=== PATIENT | female | born 1980 | race Caucasian/White ===

== ENCOUNTER 2020-06-15 15:24 | Emergency (ER) | payer OTHER, MEDICAID ==
[2020-06-15 16:38] LABS: ANION GAP 14.2 mEq/L (7-13); CHLORIDE,CL 101 mmol/L (98-107); SODIUM,NA 141 mmol/L (136-145)
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
== END 2020-06-15 18:10 | disposition home or self-care (01) ==
LOC: DL.ED 15:24
DX: T74.21XA Adult sexual abuse, confirmed, initial encounter (principal); F17.210 Nicotine dependence, cigarettes, uncomplicated
CPT/HCPCS: 36415; 80053; 80305-QW; 80307; 81001; 81025; 85025; 99282; 99285

== ENCOUNTER 2020-09-10 15:52 | Emergency (ER) | payer MEDICAID ==
[2020-09-10] MEDS ORDERED: LORazepam 1 MG Tab PO ONE ×2 (15:53→18:44)
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
[2020-09-10 17:17] LABS: ANION GAP 16.6 mEq/L (7-13); CHLORIDE,CL 100 mmol/L (98-107); SODIUM,NA 140 mmol/L (136-145)
[2020-09-10] MEDS ORDERED: Nitrofurantoin Monohydrate/Macrocrystalline 100 MG Cap PO ONE (18:57)
[2020-09-10] MEDS ORDERED: LORazepam 1 MG Tab ONE (19:09)
== END 2020-09-10 19:14 | disposition home or self-care (01) ==
LOC: DL.ED 15:52
DX: F10.230 Alcohol dependence with withdrawal, uncomplicated (principal); F17.210 Nicotine dependence, cigarettes, uncomplicated; Z79.899 Other long term (current) drug therapy; Y90.4 Blood alcohol level of 80-99 mg/100 ml
CPT/HCPCS: 36415; 80053; 80305-QW; 80307; 81001; 81025; 85025; 87086; 87088; 87186; 99283; 99284; A9270-GY

== ENCOUNTER 2021-01-10 11:03 | Emergency (ER) | payer MEDICAID ==
[2021-01-10] MEDS ORDERED: LORazepam 0.5 MG Tab PO ONE (11:04)
[2021-01-10 11:52] LABS: ANION GAP 29.4 mEq/L (7-13); CHLORIDE,CL 97 mmol/L (98-107); SODIUM,NA 139 mmol/L (136-145)
[2021-01-10] MEDS ORDERED: LORazepam 2 MG/ML SDV IVPUSH ONE ×3 (11:57→15:59)
[2021-01-10] MEDS ORDERED: Sodium Chloride 0.9% 1,000 ML IV ONE (11:57)
[2021-01-10] MEDS ORDERED: Magnesium Sulfate/Water 2 GM/50 ML BAG IV ONE (11:58)
[2021-01-10] MEDS ORDERED: MVI, Adult with Vitamin K 10 ML, Folic Acid 1 MG, Thiamine 100 MG in Lactated Ringers 1... IV ONE ×4 (13:59)
[2021-01-10] MEDS ORDERED: Magnesium Sulfate/D5W 2 GM/200 ML BAG ONE (14:03)
[2021-01-10] MEDS ORDERED: LORazepam 0.5 MG Tab ONE (16:00)
--- NOTE | 2021-01-10 17:00 | EDM.PDOCBH ---
Scribed by Ida Pina 01/10/21 1534 for Marianne Cast NP ED HPI GENERAL MEDICAL PROBLEM - General Chief Complaint: Drug or Alcohol Abuse Stated Complaint: DETOX Time Seen by Provider: 01/10/21 11:18 Source of Information: Reports: Patient, RN, RN Notes Reviewed History Limitations: Reports: No Limitations - History of Present Illness INITIAL COMMENTS - FREE TEXT/NARRATIVE: Patient is a 40-year-old female who presents to ER with complaint of vomiting when eating. Seen last week for lab work--elevated liver enzymes. States she drinks heavily. Last drink this A.M. at 9 "a few drinks" last night got drunk. States she has been drinking especially heavy over the past 2 weeks. Patient states she has lost a lot of weight over the past few months. Patient states she is here because she can't eat and she wants to stop drinking. She has increased anxiety but no hallucinations. No blood in vomit or stool. She has had no headaches bit mild tremors and nausea in the last 2 weeks. Onset: Gradual Duration: Getting Worse Severity: Moderate Improves with: Reports: None Worsens with: Reports: None Associated Symptoms: Reports: No Other Symptoms - Related Data Allergies Allergy/AdvReac Type Severity Reaction Status Date / Time No Known Allergies Allergy Verified 01/10/21 11:13 Home Meds: Home Meds Naltrexone Microspheres [Vivitrol] 380 mg IM ASDIRECTED 09/10/20 [History] Propranolol [Inderal] 20 mg PO BID 09/10/20 [History] Vilazodone [Viibryd] 20 mg PO DAILY 09/10/20 [History] Past Medical History HEENT History: Reports: None Cardiovascular History: Reports: None Respiratory History: Reports: None Gastrointestinal History: Reports: None Genitourinary History: Reports: None SHIP FITTER History: Reports: None Musculoskeletal History: Reports: None Neurological History: Reports: None Psychiatric History: Reports: Addiction Endocrine/Metabolic History: Reports: None Hematologic History: Reports: None Immunologic History: Reports: None Oncologic (Cancer) History: Reports: None Dermatologic History: Reports: None - Infectious Disease History Infectious Disease History: Reports: None - Past Surgical History Head Surgeries/Procedures: Reports: None Social & Family History - Family History Family Medical History: No Pertinent Family History - Caffeine Use Caffeine Use: Reports: Soda ED ROS GENERAL - Review of Systems Review Of Systems: Comprehensive ROS is negative, except as noted in HPI. ED EXAM, BEHAVIORAL HEALTH - Physical Exam Exam: See Below Exam Limited By: No Limitations General Appearance: Anxious Eye Exam: Bilateral Eye: EOMI, Normal Inspection, PERRL Ears: Normal External Exam, Normal Canal, Hearing Grossly Normal, Normal TMs Nose: Normal Inspection, Normal Mucosa, No Blood Throat/Mouth: Normal Inspection, Normal Lips, Normal Teeth, Normal Gums, Normal Oropharynx, Normal Voice, No Airway Compromise Head: Atraumatic, Normocephalic Neck: Normal Inspection, Supple, Non-Tender, Full Range of Motion Respiratory/Chest: No Respiratory Distress, Lungs Clear, Normal Breath Sounds, No Accessory Muscle Use, Chest Non-Tender Cardiovascular: Normal Peripheral Pulses, Regular Rate, Rhythm, No Edema, No Gallop, No JVD, No Murmur, No Rub GI/Abdominal: Normal Bowel Sounds, Soft, Non-Tender, No Organomegaly, No Distention, No Abnormal Bruit, No Mass (Female) Exam: Deferred Rectal (Female) Exam: Deferred Back Exam: Normal Inspection, Full Range of Motion, NT Extremities: Normal Inspection, Normal Range of Motion, Non-Tender, Normal Capillary Refill, No Pedal Edema Neurological: Alert, Normal Mood/Affect, CN II-XII Intact, Normal Cognition, Normal Gait, Normal Reflexes, No Motor/Sensory Deficits, Oriented x 3 Psychiatric: Other (anxious) Skin Exam: Warm, Dry, Intact, Normal color, No rash COURSE, BEHAVIORAL HEALTH COMP - Course Vital Signs: Last Vital Signs Temp 98.3 F 01/10/21 11:14 Pulse 127 H 01/10/21 11:14 Resp 20 01/10/21 11:14 BP 135/90 01/10/21 11:14 Pulse Ox 100 01/10/21 11:14 Orders, Labs, Meds: Laboratory Tests 01/10/21 01/10/21 01/10/21 Range/Units 11:23 11:23 11:23 WBC (5.0-10.0) 10^3/uL RBC (4.2-5.4) 10^6/uL Hgb (12.0-16.0) g/dL Hct (37.0-47.0) % MCV (80-100) fL MCH (27.0-34.0) pg MCHC (33.0-35.0) g/dL Plt Count (150-450) 10^3/uL Neut % (Auto) (42.2-75.2) % Lymph % (Auto) (20.5-50.1) % [place] % (Auto) (2-8) % Eos % (Auto) (1.0-3.0) % Baso % (Auto) (0.0-1.0) % Sodium (136-145) mmol/L Potassium (3.5-5.1) mmol/L Chloride (98-107) mmol/L Carbon Dioxide (21-32) mmol/L Anion Gap (7-13) mEq/L BUN (7-18) mg/dL Creatinine (0.55-1.02) mg/dL Est Cr Clr Drug Dosing mL/min Estimated GFR (MDRD) BUN/Creatinine Ratio (No establ ref range) Glucose (74-99) mg/dL Calcium (8.5-10.1) mg/dL Magnesium (1.8-2.4) mg/dL Total Bilirubin (0.2-1.0) mg/dL AST (15-37) U/L ALT (14-59) U/L Alkaline Phosphatase (46-116) U/L Total Protein (6.4-8.2) g/dL Albumin (3.4-5.0) g/dL Globulin Albumin/Globulin Ratio Urine Color Yellow (YELLOW) Urine Appearance Cloudy (CLEAR) Urine pH 5.5 (5.0-9.0) Ur Specific [place] >= 1.030 (1.005-1.030) Urine Protein 30 H (NEGATIVE) Urine Glucose (UA) Negative (NEGATIVE) Urine Ketones >=160 H (NEGATIVE) Urine Occult Blood Small H (NEGATIVE) Urine Nitrite Negative (NEGATIVE) Urine Bilirubin Small H (NEGATIVE) Urine Urobilinogen 1.0 (0.2-1.0) mg/dL Ur Leukocyte Esterase Trace H (NEGATIVE) Urine RBC 0-5 /HPF Urine WBC 10-20 H (0-5/HPF) /HPF Ur Epithelial Cells Many H (NOT SEEN) /HPF Amorphous Sediment Occasional (NOT SEEN) /HPF Urine Bacteria Few (0-FEW/HPF) /HPF Urine Mucus Rare (NOT SEEN) /LPF Urine Yeast Rare H (NOT SEEN) /HPF Urinalysis Comment Urine HCG, Qual Negative Urine Opiates Screen Negative (NEGATIVE) Ur Oxycodone Screen Negative (NEGATIVE) Urine Methadone Screen Negative (NEGATIVE) Ur Barbiturates Screen Negative (NEGATIVE) U Tricyclic Antidepress Negative (NEGATIVE) Ur Phencyclidine Scrn Negative (NEGATIVE) Ur Amphetamine Screen Negative (NEGATIVE) U Methamphetamines Scrn Negative (NEGATIVE) Urine MDMA Screen Negative (NEGATIVE) U Benzodiazepines Scrn Negative (NEGATIVE) Urine Cocaine Screen Negative (NEGATIVE) U Marijuana (THC) Screen Negative (NEGATIVE) Ethyl Alcohol (0) mg/dL 01/10/21 01/10/21 Range/Units 11:29 11:29 WBC 5.0 (5.0-10.0) 10^3/uL RBC 3.77 L (4.2-5.4) 10^6/uL Hgb 13.6 (12.0-16.0) g/dL Hct 39.4 (37.0-47.0) % MCV 104.5 H (80-100) fL MCH 36.1 H (27.0-34.0) pg MCHC 34.5 (33.0-35.0) g/dL Plt Count 183 (150-450) 10^3/uL Neut % (Auto) 70.9 (42.2-75.2) % Lymph % (Auto) 19.6 L (20.5-50.1) % [place] % (Auto) 8.9 H (2-8) % Eos % (Auto) 0.2 L (1.0-3.0) % Baso % (Auto) 0.4 (0.0-1.0) % Sodium 139 (136-145) mmol/L Potassium 3.4 L (3.5-5.1) mmol/L Chloride 97 L (98-107) mmol/L Carbon Dioxide 16 L D (21-32) mmol/L Anion Gap 29.4 H (7-13) mEq/L BUN 7 (7-18) mg/dL Creatinine 0.88 (0.55-1.02) mg/dL Est Cr Clr Drug Dosing 85.96 mL/min Estimated GFR (MDRD) > 60 BUN/Creatinine Ratio 8.0 (No establ ref range) Glucose 72 L (74-99) mg/dL Calcium 8.0 L (8.5-10.1) mg/dL Magnesium 1.4 L (1.8-2.4) mg/dL Total Bilirubin 1.3 H (0.2-1.0) mg/dL AST 483 H (15-37) U/L ALT 67 H (14-59) U/L Alkaline Phosphatase 217 H (46-116) U/L Total Protein 7.3 (6.4-8.2) g/dL Albumin 3.0 L (3.4-5.0) g/dL Globulin 4.3 Albumin/Globulin Ratio 0.70 Urine Color (YELLOW) Urine Appearance (CLEAR) Urine pH (5.0-9.0) Ur Specific [place] (1.005-1.030) Urine Protein (NEGATIVE) Urine Glucose (UA) (NEGATIVE) Urine Ketones (NEGATIVE) Urine Occult Blood (NEGATIVE) Urine Nitrite (NEGATIVE) Urine Bilirubin (NEGATIVE) Urine Urobilinogen (0.2-1.0) mg/dL Ur Leukocyte Esterase (NEGATIVE) Urine RBC /HPF Urine WBC (0-5/HPF) /HPF Ur Epithelial Cells (NOT SEEN) /HPF Amorphous Sediment (NOT SEEN) /HPF Urine Bacteria (0-FEW/HPF) /HPF Urine Mucus (NOT SEEN) /LPF Urine Yeast (NOT SEEN) /HPF Urinalysis Comment Urine HCG, Qual Urine Opiates Screen (NEGATIVE) Ur Oxycodone Screen (NEGATIVE) Urine Methadone Screen (NEGATIVE) Ur Barbiturates Screen (NEGATIVE) U Tricyclic Antidepress (NEGATIVE) Ur Phencyclidine Scrn (NEGATIVE) Ur Amphetamine Screen (NEGATIVE) U Methamphetamines Scrn (NEGATIVE) Urine MDMA Screen (NEGATIVE) U Benzodiazepines Scrn (NEGATIVE) Urine Cocaine Screen (NEGATIVE) U Marijuana (THC) Screen (NEGATIVE) Ethyl Alcohol 97 (0) mg/dL Medications Discontinued Medications Generic Name Dose Route Start Last Admin Trade Name Freq PRN Reason Stop Dose Admin Sodium Chloride 1,000 mls @ 999 mls/hr 01/10/21 11:57 01/10/21 12:18 Normal Saline IV 01/10/21 12:57 999 mls/hr .BOLUS ONE Administration Magnesium Sulfate 2 gm in 50 mls @ 25 mls/hr 01/10/21 11:58 01/10/21 14:09 Magnesium Sulfate In Water 2 Gm/50 Ml IV 01/10/21 13:57 25 mls/hr ONETIME ONE Administration Multivitamins/Minerals 10 ml/ 1,011.2 mls @ 999 mls/hr 01/10/21 13:59 01/10/21 14:09 Folic Acid 1 mg/ Thiamine HCl IV 01/10/21 14:59 999 mls/hr 100 mg/ Lactated Ringer's ONETIME ONE Administration Magnesium Sulfate/Dextrose Confirm 01/10/21 14:03 01/10/21 14:09 Magnesium Sulfate In D5w 1 Gm/100 Ml Administered 01/10/21 14:04 Not Given Dose 2 gm in 200 mls @ as directed .ROUTE .STK-MED ONE Lorazepam 0.5 mg 01/10/21 11:57 01/10/21 12:18 Lorazepam 2 Mg/Ml Sdv IVPUSH 01/10/21 11:58 0.5 mg ONETIME ONE Administration Lorazepam 1 mg 01/10/21 14:08 01/10/21 14:13 Lorazepam 2 Mg/Ml Sdv IVPUSH 01/10/21 14:09 1 mg ONETIME ONE Administration Lorazepam 1 mg 01/10/21 15:59 01/10/21 16:04 Lorazepam 2 Mg/Ml Sdv IVPUSH 01/10/21 16:00 1 mg ONETIME ONE Administration Lorazepam Confirm 01/10/21 16:00 01/10/21 16:03 Lorazepam 0.5 Mg Tab Administered 01/10/21 16:01 Not Given Dose 3 mg .ROUTE .STK-MED ONE Departure - Departure Time of Disposition: 16:04 Disposition: Home, Self-Care 01 Condition: Fair Clinical Impression: Alcohol withdrawal syndrome Qualifiers: Complication of substance-induced condition: uncomplicated Qualified Code(s): F10.230 - Alcohol dependence with withdrawal, uncomplicated - Discharge Information *PRESCRIPTION DRUG MONITORING PROGRAM REVIEWED*: No *COPY OF PRESCRIPTION DRUG MONITORING REPORT IN PATIENT STEPHANIA: No Instructions: Alcohol Use Disorder, Alcohol Withdrawal Syndrome Forms: ED Department Discharge Additional Instructions: RX: Lorazepam as directed for anxiety Follow up at the [facility] tomorrow am Return to ER with any further problems Sepsis Event Note (ED) - Focused Exam Vital Signs: Vital Signs Temp Pulse Resp BP Pulse Ox 01/10/21 11:14 98.3 F 127 H 20 135/90 100 I have read and agree with the documentation that has been completed regarding this visit. By signing this record, I attest that the documentation was completed in my physical presence and is an accurate record of the encounter.
== END 2021-01-10 16:10 | disposition home or self-care (01) ==
LOC: DL.ED 11:03
DX: F10.230 Alcohol dependence with withdrawal, uncomplicated (principal); Y90.4 Blood alcohol level of 80-99 mg/100 ml; Z79.899 Other long term (current) drug therapy
CPT/HCPCS: 36415; 80053; 80305; 80307; 81001; 81025; 83735; 85025; 96365; 96368; 96375; 96376; 99284; A9270; J2060; J3411; J3475; J7030; J7120; 99283; J3490

== ENCOUNTER 2021-01-28 16:02 | Emergency (ER) | payer MEDICAID ==
[2021-01-28 16:58] LABS: ANION GAP 13.3 mEq/L (7-13); CHLORIDE,CL 96 mmol/L (98-107); SODIUM,NA 135 mmol/L (136-145)
[2021-01-28 17:00] LABS: ACETAMINOPHEN 0 ug/mL (10-30 (Therapeutic))
--- NOTE | 2021-01-28 17:13 | EDM.PDOCBH ---
<Rodrick Rodríguez Haven - Last Filed: 01/28/21 17:33> ED HPI GENERAL MEDICAL PROBLEM - General Chief Complaint: Drug or Alcohol Abuse Stated Complaint: DETOXING - MED CLEARANCE Time Seen by Provider: 01/28/21 17:06 Source of Information: Reports: Patient History Limitations: Reports: No Limitations - History of Present Illness INITIAL COMMENTS - FREE TEXT/NARRATIVE: 40 y/o F c/o shakiness and sweating. Pt is here to get medical clearance for CRU to detox from alcohol. Pt is an alcoholic and usually drinks whiskey. Last drink was last night. In the last 6 mo pt has lost 30lbs. She also is c/o diarrhea, anxiety and excessive sweating. Has not had her thyroid evaluated. Denies lin, cp, db, neck pn, recent trauma, drugs, abd pn, difficulty voiding. Has been an alcoholic for 10 years. Duration: Hour(s): Location: Reports: Generalized Improves with: Reports: None Worsens with: Reports: None - Related Data Allergies Allergy/AdvReac Type Severity Reaction Status Date / Time No Known Allergies Allergy Verified 01/28/21 16:24 Home Meds: Home Meds Naltrexone Microspheres [Vivitrol] 380 mg IM ASDIRECTED 09/10/20 [History] Propranolol [Inderal] 20 mg PO BID 09/10/20 [History] Vilazodone [Viibryd] 20 mg PO DAILY 09/10/20 [History] Nitrofurantoin Monohyd/M-Cryst [Macrobid 100 mg Capsule] 1 tab PO BID 01/28/21 [History] Ondansetron [Zofran ODT] 4 mg SL Q6H PRN 01/28/21 [History] Venlafaxine [Effexor XR 24 Hr] 37.5 mg PO DAILY 01/28/21 [History] Past Medical History HEENT History: Reports: None Cardiovascular History: Reports: None Respiratory History: Reports: None Gastrointestinal History: Reports: None Genitourinary History: Reports: None [employer] History: Reports: None Musculoskeletal History: Reports: None Neurological History: Reports: None Psychiatric History: Reports: Addiction Endocrine/Metabolic History: Reports: None Hematologic History: Reports: None Immunologic History: Reports: None Oncologic (Cancer) History: Reports: None Dermatologic History: Reports: None - Infectious Disease History Infectious Disease History: Reports: None - Past Surgical History Head Surgeries/Procedures: Reports: None Social & Family History - Family History Family Medical History: No Pertinent Family History - Tobacco Use Tobacco Use Status *Q: Current Every Day Tobacco User Years of Tobacco use: 1 Packs/Tins Daily: 0.5 - Caffeine Use Caffeine Use: Reports: None - Alcohol Use Days Per Week of Alcohol Use: 7 Number of Drinks Per Day: 0 Total Drinks Per Week: 0 - Recreational Drug Use Recreational Drug Use: No ED ROS GENERAL - Review of Systems Review Of Systems: Comprehensive ROS is negative, except as noted in HPI. ED EXAM, BEHAVIORAL HEALTH - Physical Exam Exam: See Below Exam Limited By: No Limitations General Appearance: Alert, WD/WN, No Apparent Distress Eye Exam: Bilateral Eye: PERRL Ears: Normal External Exam, Normal Canal, Hearing Grossly Normal, Normal TMs Nose: Normal Inspection, Normal Mucosa, No Blood Throat/Mouth: Normal Inspection, Normal Lips, Normal Teeth, Normal Gums, Normal Oropharynx, Normal Voice, No Airway Compromise Head: Atraumatic, Normocephalic Neck: Normal Inspection, Supple, Non-Tender, Full Range of Motion Respiratory/Chest: No Respiratory Distress, Lungs Clear, Normal Breath Sounds, No Accessory Muscle Use, Chest Non-Tender Cardiovascular: Normal Peripheral Pulses, Regular Rate, Rhythm, No Edema, No Gallop, No JVD, No Murmur, No Rub GI/Abdominal: Soft, Non-Tender (Female) Exam: Deferred Rectal (Female) Exam: Deferred Back Exam: Normal Inspection, Full Range of Motion, NT Extremities: Normal Inspection, Normal Range of Motion, Non-Tender, Normal Capillary Refill, No Pedal Edema Neurological: Alert, Normal Mood/Affect, CN II-XII Intact, Normal Cognition, Normal Gait, Normal Reflexes, No Motor/Sensory Deficits, Oriented x 3 Psychiatric: Alert, Normal Affect, Normal Cognition, Normal Mood, Oriented Skin Exam: Warm, Dry, Intact, Normal color Departure - Departure Time of Disposition: 17:29 Disposition: Home, Self-Care 01 Condition: Fair Clinical Impression: Alcohol abuse with withdrawal - Discharge Information *PRESCRIPTION DRUG MONITORING PROGRAM REVIEWED*: Not Applicable *COPY OF PRESCRIPTION DRUG MONITORING REPORT IN PATIENT STEPHANIA: Not Applicable Instructions: Alcohol Withdrawal Syndrome, [id number] Forms: ED Department Discharge Additional Instructions: RX ativan Go to CRU for detox, avoid using alcohol No medical contraindication to being admitted to CRU at this time. Sepsis Event Note (ED) - Evaluation Sepsis Screening Result: No Definite Risk <Gio Boss - Last Filed: 01/28/21 17:34> COURSE, BEHAVIORAL HEALTH COMP - Course Vital Signs: Last Vital Signs Temp 98.9 F 01/28/21 16:33 Pulse 99 01/28/21 16:33 Resp 20 01/28/21 16:33 BP 93/72 01/28/21 16:33 Pulse Ox 100 01/28/21 16:33 Orders, Labs, Meds: Active Orders 24 hr Category Date Time Status DRUG SCREEN URINE BIORAD [URCHEM] Stat Lab 01/28/21 16:28 Ordered HCG QUALITATIVE,URINE [URCHEM] Stat Lab 01/28/21 16:28 Ordered TSH ULTRASENSITIVE [CHEM] Stat Lab 01/28/21 16:35 Received UA RFX SUREKHA AND CULT IF INDIC [URIN] Stat Lab 01/28/21 16:28 Ordered Laboratory Tests 01/28/21 01/28/21 01/28/21 Range/Units 16:35 16:35 16:35 WBC 2.8 L (5.0-10.0) 10^3/uL RBC 3.43 L (4.2-5.4) 10^6/uL Hgb 12.3 (12.0-16.0) g/dL Hct 36.3 L (37.0-47.0) % MCV 105.8 H (80-100) fL MCH 35.9 H (27.0-34.0) pg MCHC 33.9 (33.0-35.0) g/dL Plt Count 136 L (150-450) 10^3/uL Neut % (Auto) 60.7 (42.2-75.2) % Lymph % (Auto) 29.6 (20.5-50.1) % [place] % (Auto) 8.3 H (2-8) % Eos % (Auto) 0.7 L (1.0-3.0) % Baso % (Auto) 0.7 (0.0-1.0) % Sodium 135 L (136-145) mmol/L Potassium 3.3 L (3.5-5.1) mmol/L Chloride 96 L (98-107) mmol/L Carbon Dioxide 29 D (21-32) mmol/L Anion Gap 13.3 H (7-13) mEq/L BUN 6 L (7-18) mg/dL Creatinine 0.70 (0.55-1.02) mg/dL Est Cr Clr Drug Dosing 110.02 mL/min Estimated GFR (MDRD) > 60 BUN/Creatinine Ratio 8.6 (No establ ref range) Glucose 90 (74-99) mg/dL Calcium 8.0 L (8.5-10.1) mg/dL Total Bilirubin 2.7 H (0.2-1.0) mg/dL AST 655 H (15-37) U/L ALT 123 H (14-59) U/L Alkaline Phosphatase 225 H (46-116) U/L Total Protein 7.2 (6.4-8.2) g/dL Albumin 3.1 L (3.4-5.0) g/dL Globulin 4.1 Albumin/Globulin Ratio 0.76 Salicylates < 2.8 L (2.8-20(Therapeutic)) mg/dL Acetaminophen 0 L (10-30 (Therapeutic)) ug/mL Ethyl Alcohol 3 (0) mg/dL Medications Discontinued Medications Generic Name Dose Route Start Last Admin Trade Name Freq PRN Reason Stop Dose Admin Lorazepam 2 mg 01/28/21 17:28 Lorazepam 0.5 Mg Tab PO 01/28/21 17:29 ONETIME ONE Re-Assessment/Re-Exam: I personally performed or re-performed the physical examination and medical decision making. I have verified all student documentation or findings, including history, physical exam and/or medical decision making. Medical Clearance: 01/28/21 17:34 No medical contraindication to being in CRU at this time. Sepsis Event Note (ED) - Focused Exam Vital Signs: Vital Signs Temp Pulse Resp BP Pulse Ox 01/28/21 16:33 98.9 F 99 20 93/72 100 - My Orders Last 24 Hours: My Active Orders 01/28/21 16:28 DRUG SCREEN URINE BIORAD [URCHEM] Stat HCG QUALITATIVE,URINE [URCHEM] Stat UA RFX SUREKHA AND CULT IF INDIC [URIN] Stat 01/28/21 16:35 TSH ULTRASENSITIVE [CHEM] Stat - Assessment/Plan Last 24 Hours: My Active Orders 01/28/21 16:28 DRUG SCREEN URINE BIORAD [URCHEM] Stat HCG QUALITATIVE,URINE [URCHEM] Stat UA RFX SUREKHA AND CULT IF INDIC [URIN] Stat 01/28/21 16:35 TSH ULTRASENSITIVE [CHEM] Stat
[2021-01-28] MEDS ORDERED: LORazepam 0.5 MG Tab PO ONE (17:28)
== END 2021-01-28 17:43 | disposition home or self-care (01) ==
LOC: DL.ED 16:02
DX: F10.139 Alcohol abuse with withdrawal, unspecified (principal); Y90.0 Blood alcohol level of less than 20 mg/100 ml; Z72.0 Tobacco use
CPT/HCPCS: 36415; 80053; 80143; 80179; 80307; 84443; 85025; 99284; A9270; 99283

== ENCOUNTER 2021-08-04 08:30 | Emergency (ER) | payer MEDICAID ==
--- NOTE | 2021-08-04 09:01 | EDM.PDOCBH ---
ED HPI GENERAL MEDICAL PROBLEM - General Chief Complaint: Drug or Alcohol Abuse Stated Complaint: [id number] SENT BY [facility] Time Seen by Provider: 08/04/21 09:00 Source of Information: Reports: Patient, Old Records, RN, RN Notes Reviewed History Limitations: Reports: No Limitations - History of Present Illness INITIAL COMMENTS - FREE TEXT/NARRATIVE: Pt presents to the ED after calling the [facility] wanting to go to treatment for alcohol use. She state the [facility] told her to come to the ED to get medically cleared, and to get medication to get her through the withdrawals. Has been through alcohol treatment three times, and maintained sobriety for about 3 months after each treatment. Pt states she drinks vodka and wine, last drink was early this morning. Denies suicidal thoughts. Pt lives with her boyfriend who is also an alcoholic. Duration: Chronic, Recurring Severity: Severe Improves with: Reports: None Worsens with: Reports: None Associated Symptoms: Reports: No Other Symptoms - Related Data Allergies Allergy/AdvReac Type Severity Reaction Status Date / Time No Known Allergies Allergy Verified 01/28/21 16:24 Home Meds: Home Meds Naltrexone Microspheres [Vivitrol] 380 mg IM ASDIRECTED 09/10/20 [History] Propranolol [Inderal] 20 mg PO BID 09/10/20 [History] Vilazodone [Viibryd] 20 mg PO DAILY 09/10/20 [History] Nitrofurantoin Monohyd/M-Cryst [Macrobid 100 mg Capsule] 1 tab PO BID 01/28/21 [History] Ondansetron [Zofran ODT] 4 mg SL Q6H PRN 01/28/21 [History] Venlafaxine [Effexor XR 24 Hr] 37.5 mg PO DAILY 01/28/21 [History] Past Medical History HEENT History: Reports: None Cardiovascular History: Reports: None Respiratory History: Reports: None Gastrointestinal History: Reports: None Genitourinary History: Reports: None B[employer]ER History: Reports: None Musculoskeletal History: Reports: None Neurological History: Reports: None Psychiatric History: Reports: Addiction Endocrine/Metabolic History: Reports: None Hematologic History: Reports: None Immunologic History: Reports: None Oncologic (Cancer) History: Reports: None Dermatologic History: Reports: None - Infectious Disease History Infectious Disease History: Reports: None - Past Surgical History Head Surgeries/Procedures: Reports: None Social & Family History - Family History Family Medical History: No Pertinent Family History - Caffeine Use Caffeine Use: Reports: None - Living Situation & Occupation Living situation: Reports: with Significant Other Occupation: Unemployed ED ROS GENERAL - Review of Systems Review Of Systems: Comprehensive ROS is negative, except as noted in HPI. ED EXAM, BEHAVIORAL HEALTH - Physical Exam Exam: See Below Exam Limited By: No Limitations General Appearance: Alert, WD/WN, No Apparent Distress Eye Exam: Bilateral Eye: EOMI, Normal Inspection, PERRL Ears: Normal External Exam, Hearing Grossly Normal Nose: Normal Inspection Throat/Mouth: Normal Inspection Head: Atraumatic, Normocephalic Neck: Normal Inspection Respiratory/Chest: No Respiratory Distress, Lungs Clear Cardiovascular: Regular Rate, Rhythm, Tachycardia GI/Abdominal: Normal Bowel Sounds, Soft, Non-Tender, No Organomegaly Back Exam: Normal Inspection Extremities: Normal Inspection Neurological: Alert, CN II-XII Intact, Normal Cognition, Normal Gait, Oriented x 3, Tremor (Hands) Psychiatric: Alert, Normal Mood, Flat Affect. No: Homicidal Thoughts, Suicidal Plan, Suicidal Thoughts, Auditory Hallucinations, Visual Hallucinations, Pressured Speech, Paranoid Thoughts Skin Exam: Warm, Dry, Intact, Normal color, No rash COURSE, BEHAVIORAL HEALTH COMP - Course Vital Signs: Last Vital Signs Temp 98.1 F 08/04/21 09:04 Pulse 97 08/04/21 09:04 Resp 16 08/04/21 09:04 BP 116/84 08/04/21 09:04 Pulse Ox 99 08/04/21 09:04 Orders, Labs, Meds: Active Orders 24 hr Category Date Time Status CORONAVIRUS COVID-19 GABBY [MOLEC] Stat Lab 08/04/21 09:08 Received CULTURE URINE [RM] Stat Lab 08/04/21 09:08 Received STD PANEL 3 [REF] Stat Lab 08/04/21 09:51 Ordered Laboratory Tests 08/04/21 08/04/21 08/04/21 Range/Units 09:08 09:08 09:08 WBC (5.0-10.0) 10^3/uL RBC (4.2-5.4) 10^6/uL Hgb (12.0-16.0) g/dL Hct (37.0-47.0) % MCV (80-100) fL MCH (27.0-34.0) pg MCHC (33.0-35.0) g/dL Plt Count (150-450) 10^3/uL Neut % (Auto) (42.2-75.2) % Lymph % (Auto) (20.5-50.1) % [place] % (Auto) (2-8) % Eos % (Auto) (1.0-3.0) % Baso % (Auto) (0.0-1.0) % Sodium (136-145) mmol/L Potassium (3.5-5.1) mmol/L Chloride (98-107) mmol/L Carbon Dioxide (21-32) mmol/L Anion Gap (7-13) mEq/L BUN (7-18) mg/dL Creatinine (0.55-1.02) mg/dL Est Cr Clr Drug Dosing mL/min Estimated GFR (MDRD) BUN/Creatinine Ratio (No establ ref range) Glucose (70-99) mg/dL Calcium (8.5-10.1) mg/dL Total Bilirubin (0.2-1.0) mg/dL AST (15-37) U/L ALT (14-59) U/L Alkaline Phosphatase (46-116) U/L Total Protein (6.4-8.2) g/dL Albumin (3.4-5.0) g/dL Globulin Albumin/Globulin Ratio Urine Color Dark yellow (YELLOW) Urine Appearance Cloudy (CLEAR) Urine pH 5.5 (5.0-9.0) Ur Specific [place] >= 1.030 (1.005-1.030) Urine Protein 30 H (NEGATIVE) Urine Glucose (UA) Negative (NEGATIVE) Urine Ketones 15 H (NEGATIVE) Urine Occult Blood Moderate H (NEGATIVE) Urine Nitrite Positive H (NEGATIVE) Urine Bilirubin Small H (NEGATIVE) Urine Urobilinogen 1.0 (0.2-1.0) mg/dL Ur Leukocyte Esterase Small H (NEGATIVE) Urine RBC 5-10 H (0-5) /HPF Urine WBC 5-10 H (0-5/HPF) /HPF Ur Epithelial Cells Many H (NOT SEEN) /HPF Amorphous Sediment Many H (NOT SEEN) /HPF Urine Bacteria Many H (0-FEW/HPF) /HPF Urine HCG, Qual Negative Salicylates (2.8-20(Therapeutic)) mg/dL Urine Opiates Screen Negative (NEGATIVE) Ur Oxycodone Screen Negative (NEGATIVE) Urine Methadone Screen Negative (NEGATIVE) Acetaminophen (10-30 (Therapeutic)) ug/mL Ur Barbiturates Screen Negative (NEGATIVE) U Tricyclic Antidepress Negative (NEGATIVE) Ur Phencyclidine Scrn Negative (NEGATIVE) Ur Amphetamine Screen Negative (NEGATIVE) U Methamphetamines Scrn Negative (NEGATIVE) Urine MDMA Screen Negative (NEGATIVE) U Benzodiazepines Scrn Negative (NEGATIVE) Urine Cocaine Screen Negative (NEGATIVE) U Marijuana (THC) Screen Negative (NEGATIVE) Ethyl Alcohol (0) mg/dL 08/04/21 08/04/21 08/04/21 Range/Units 09:12 09:12 09:12 WBC 3.1 L (5.0-10.0) 10^3/uL RBC 3.76 L (4.2-5.4) 10^6/uL Hgb 13.4 (12.0-16.0) g/dL Hct 39.8 (37.0-47.0) % MCV 105.9 H (80-100) fL MCH 35.6 H (27.0-34.0) pg MCHC 33.7 (33.0-35.0) g/dL Plt Count 119 L (150-450) 10^3/uL Neut % (Auto) 41.1 L (42.2-75.2) % Lymph % (Auto) 44.6 (20.5-50.1) % [place] % (Auto) 8.9 H (2-8) % Eos % (Auto) 5.1 H (1.0-3.0) % Baso % (Auto) 0.3 (0.0-1.0) % Sodium 140 (136-145) mmol/L Potassium 3.9 (3.5-5.1) mmol/L Chloride 101 (98-107) mmol/L Carbon Dioxide 28 (21-32) mmol/L Anion Gap 14.9 H (7-13) mEq/L BUN 5 L (7-18) mg/dL Creatinine 0.72 (0.55-1.02) mg/dL Est Cr Clr Drug Dosing 110.72 mL/min Estimated GFR (MDRD) > 60 BUN/Creatinine Ratio 6.9 (No establ ref range) Glucose 82 (70-99) mg/dL Calcium 8.9 (8.5-10.1) mg/dL Total Bilirubin 0.5 (0.2-1.0) mg/dL AST 89 H (15-37) U/L ALT 27 (14-59) U/L Alkaline Phosphatase 129 H (46-116) U/L Total Protein 8.3 H (6.4-8.2) g/dL Albumin 4.0 (3.4-5.0) g/dL Globulin 4.3 Albumin/Globulin Ratio 0.9 Urine Color (YELLOW) Urine Appearance (CLEAR) Urine pH (5.0-9.0) Ur Specific [place] (1.005-1.030) Urine Protein (NEGATIVE) Urine Glucose (UA) (NEGATIVE) Urine Ketones (NEGATIVE) Urine Occult Blood (NEGATIVE) Urine Nitrite (NEGATIVE) Urine Bilirubin (NEGATIVE) Urine Urobilinogen (0.2-1.0) mg/dL Ur Leukocyte Esterase (NEGATIVE) Urine RBC (0-5) /HPF Urine WBC (0-5/HPF) /HPF Ur Epithelial Cells (NOT SEEN) /HPF Amorphous Sediment (NOT SEEN) /HPF Urine Bacteria (0-FEW/HPF) /HPF Urine HCG, Qual Salicylates 3.4 (2.8-20(Therapeutic)) mg/dL Urine Opiates Screen (NEGATIVE) Ur Oxycodone Screen (NEGATIVE) Urine Methadone Screen (NEGATIVE) Acetaminophen 0 L (10-30 (Therapeutic)) ug/mL Ur Barbiturates Screen (NEGATIVE) U Tricyclic Antidepress (NEGATIVE) Ur Phencyclidine Scrn (NEGATIVE) Ur Amphetamine Screen (NEGATIVE) U Methamphetamines Scrn (NEGATIVE) Urine MDMA Screen (NEGATIVE) U Benzodiazepines Scrn (NEGATIVE) Urine Cocaine Screen (NEGATIVE) U Marijuana (THC) Screen (NEGATIVE) Ethyl Alcohol 57 (0) mg/dL Medications Discontinued Medications Generic Name Dose Route Start Last Admin Trade Name Freq PRN Reason Stop Dose Admin Cephalexin 500 mg 08/04/21 09:52 Cephalexin 500 Mg Cap PO 08/04/21 09:53 ONETIME ONE Lorazepam 2 mg 08/04/21 09:51 08/04/21 10:00 Lorazepam 1 Mg Tab PO 08/04/21 09:52 2 mg ONETIME ONE Administration Medical Clearance: 08/04/21 10:08 Pt is medically clear to go to [facility]. Departure - Departure Time of Disposition: 09:58 (d/c to [facility] voluntarily) Disposition: Home, Self-Care 01 Condition: Fair Clinical Impression: Alcohol abuse with withdrawal UTI (urinary tract infection) Qualifiers: Urinary tract infection type: site unspecified Hematuria presence: without hematuria Qualified Code(s): N39.0 - Urinary tract infection, site not specified - Discharge Information *PRESCRIPTION DRUG MONITORING PROGRAM REVIEWED*: Not Applicable *COPY OF PRESCRIPTION DRUG MONITORING REPORT IN PATIENT STEPHANIA: Not Applicable Instructions: Alcohol Use Disorder, Alcohol Withdrawal Syndrome, Urinary Tract Infection, Adult Forms: ED Department Discharge Additional Instructions: Rx: Lorazepam 1mg: One tablet by mouth every 6 hours for four days (16 doses total). Rx: Cephalexin 500mg: One capsule by mouth four times a day for ten days. Abstain from alcohol consumption. Go to [facility] as planned. Sepsis Event Note (ED) - Focused Exam Vital Signs: Vital Signs Temp Pulse Resp BP Pulse Ox 08/04/21 09:04 98.1 F 97 16 116/84 99 - My Orders Last 24 Hours: My Active Orders 08/04/21 09:08 CORONAVIRUS COVID-19 GABBY [MOLEC] Stat CULTURE URINE [RM] Stat 08/04/21 09:51 STD PANEL 3 [REF] Stat - Assessment/Plan Last 24 Hours: My Active Orders 08/04/21 09:08 CORONAVIRUS COVID-19 GABBY [MOLEC] Stat CULTURE URINE [RM] Stat 08/04/21 09:51 STD PANEL 3 [REF] Stat
[2021-08-04 09:32] LABS: AMPHETAMINES,URINE NEGATIVE (NEGATIVE); BARBITURATES,URINE NEGATIVE (NEGATIVE); BENZODIAZEPINE,URINE NEGATIVE (NEGATIVE); MDMA (ECSTASY), URINE NEGATIVE (NEGATIVE); METHADONE,URINE NEGATIVE (NEGATIVE); METHAMPHETAMINES,URINE NEGATIVE (NEGATIVE); OPIATES,URINE NEGATIVE (NEGATIVE); OXYCODONE,URINE NEGATIVE (NEGATIVE); PHENCYCLIDINE,URINE NEGATIVE (NEGATIVE); TCA,URINE NEGATIVE (NEGATIVE)
[2021-08-04 09:38] LABS: ANION GAP 14.9 mEq/L (7-13); CHLORIDE,CL 101 mmol/L (98-107); SODIUM,NA 140 mmol/L (136-145)
[2021-08-04 09:39] LABS: ACETAMINOPHEN 0 ug/mL (10-30 (Therapeutic))
[2021-08-04] MEDS ORDERED: LORazepam 1 MG Tab PO ONE (09:51)
[2021-08-04] MEDS ORDERED: Cephalexin 500 MG Cap PO ONE (09:52)
== END 2021-08-04 10:13 | disposition home or self-care (01) ==
LOC: DL.ED 08:30
DX: F10.139 Alcohol abuse with withdrawal, unspecified (principal); N39.0 Urinary tract infection, site not specified; Y90.2 Blood alcohol level of 40-59 mg/100 ml; Z20.822 Contact with and (suspected) exposure to COVID-19
CPT/HCPCS: 36415; 80053; 80143; 80179; 80305; 80307; 81001; 81025; 85025; 87086; 87635; 99284; A9270; U0002

== ENCOUNTER 2022-02-16 14:36 | Emergency (ER) | payer MEDICAID ==
[2022-02-16] MEDS ORDERED: Lidocaine 1% 30 ML SDV INJECT ONE (16:01)
[2022-02-16] MEDS ORDERED: Diphtheria,Pertussis(Acell),Tetanus Vaccine 0.5 ML Syringe IM ONE (16:57)
[2022-02-16] MEDS ORDERED: Diphtheria,Pertussis(Acell),Tetanus Vaccine 0.5 ML Syringe ONE (17:00)
== END 2022-02-16 17:24 | disposition home or self-care (01) ==
LOC: DL.ED 14:36
DX: S61.217A Laceration without foreign body of left little finger without damage to nail, initial encounter (principal); S61.216A Laceration without foreign body of right little finger without damage to nail, initial encounter; Z72.0 Tobacco use; W26.8XXA Contact with other sharp object(s), not elsewhere classified, initial encounter
CPT/HCPCS: 90471; 99282; 99282-25

== ENCOUNTER 2022-10-20 00:03 | Inpatient (IN) | payer MEDICAID ==
[~2022-10-20 00:03] MED LIST: Acetaminophen 325 MG Tab PO PRN; Carboprost Tromethamine 250 MCG/1 ML Amp IM PRN; Famotidine 20 MG/2 ML SDV IVPUSH PRN; Lactated Ringers 1,000 ML IV ONE; Lactated Ringers 1,000 ML IV SCH; Lactated Ringers 500 ML IV SCH; Lidocaine 1% 10 ML MDV INJECT PRN; Methylergonovine 0.2 MG/1 ML Amp IM PRN; Misoprostol 25 MCG (1/4 of 100 MCG) Tab VAG PRN; Misoprostol 400 MCG (4 X 100 MCG TAB) RECTAL PRN; Misoprostol 50 MCG (1/2 of 100 MCG) Tab VAG PRN; Nalbuphine 20 MG/1 ML Amp IM PRN; Naloxone 2 MG/2 ML Syringe IVPUSH PRN; Ondansetron 4 MG/2 ML SDV IVPUSH PRN; Oxytocin/Normal Saline 30 UNIT/500 ML BAG IV SCH; Penicillin G Potassium 3 MILLUNITS in Sodium Chloride 0.9% 100 ML IV SCH; Penicillin G Potassium 5 MILLUNITS in Sodium Chloride 0.9% 100 ML IV ONE; Promethazine 25 MG/ML SDV IM PRN; Sodium Chloride 0.9% 10 ML Syringe FLUSH PRN; ePHEDrine 50 MG/ML SDV IVPUSH PRN; fentaNYL 100 MCG/2 ML SDV IVPUSH PRN
[2022-10-20] MEDS: Misoprostol 50 MCG (1/2 of 100 MCG) Tab VAG PRN ×2 (01:28→09:00)
[2022-10-20] MEDS ORDERED: Penicillin G Potassium 3 MILLUNITS in Sodium Chloride 0.9% 100 ML IV SCH (16:15)
[2022-10-20] MEDS ORDERED: Penicillin G Potassium 5 MILLUNITS in Sodium Chloride 0.9% 100 ML IV ONE (16:15)
[2022-10-20] MEDS ORDERED: Citric Acid/Sodium Citrate Solution 30 ML Cup PO ONE (18:20)
[2022-10-20] MEDS ORDERED: Oxytocin 10 Units/1 ML SDV IM PRN (18:20)
[2022-10-20] MEDS ORDERED: Carboprost Tromethamine 250 MCG/1 ML Amp IM PRN ×2 (18:20→20:13)
[2022-10-20] MEDS ORDERED: ceFAZolin 2 GM in Premix Bag 1 BAG IV ONE (18:20)
[2022-10-20] MEDS ORDERED: Methylergonovine 0.2 MG Tab PO PRN (18:20)
[2022-10-20] MEDS ORDERED: Penicillin G Potassium 5,000,000 Unit Vial ONE (18:29)
[2022-10-20] MEDS ORDERED: Oxytocin/Normal Saline 30 UNIT/500 ML BAG IV SCH (18:30)
[2022-10-20] MEDS ORDERED: Lactated Ringers 1,000 ML IV SCH ×3 (18:30→20:15)
[2022-10-20] MEDS ORDERED: Oxytocin 10 Units/1 ML SDV ONE (18:36)
[2022-10-20] MEDS ORDERED: Methylergonovine 0.2 MG/1 ML Amp ONE (18:36)
[2022-10-20] MEDS ORDERED: Oxytocin/Normal Saline 60 UNIT/1,000 ML BAG ONE (18:36)
[2022-10-20] MEDS ORDERED: Succinylcholine 200 MG/10 ML MDV ONE (18:37)
[2022-10-20] MEDS ORDERED: Ibuprofen 800 MG Tab PO PRN (20:13)
[2022-10-20] MEDS ORDERED: Misoprostol 400 MCG (4 X 100 MCG TAB) RECTAL PRN (20:13)
[2022-10-20] MEDS ORDERED: Methylergonovine 0.2 MG/1 ML Amp IM PRN (20:13)
[2022-10-20] MEDS ORDERED: ePHEDrine 50 MG/ML SDV IVPUSH PRN (20:13)
[2022-10-20] MEDS ORDERED: Acetaminophen 325 MG Tab PO PRN (20:13)
[2022-10-20] MEDS ORDERED: Naloxone 2 MG/2 ML Syringe IVPUSH PRN (20:13)
[2022-10-20] MEDS ORDERED: Ondansetron 4 MG/2 ML SDV IVPUSH PRN (20:13)
[2022-10-20] MEDS ORDERED: diphenhydrAMINE 50 MG/ML SDV IVPUSH PRN (20:13)
[2022-10-20] MEDS ORDERED: Ketorolac 30 MG/ML SDV IVPUSH SCH (20:15)
[2022-10-21] MEDS: Ketorolac 30 MG/ML SDV IVPUSH SCH ×3 (02:08→13:59)
[2022-10-21] MEDS: Docusate Sodium 100 MG Cap PO PRN ×2 (08:11→20:06)
[2022-10-21] MEDS: Ferrous Sulfate 325 MG Tab PO SCH (08:11)
[2022-10-21] MEDS: Prenatal Multivitamin with Calcium/Folic Acid/Iron Tab PO SCH (08:11)
[2022-10-21] MEDS: Simethicone 80 MG Tab.Chew PO SCH ×5 (08:11→20:06)
[2022-10-21] MEDS: Penicillin G Potassium 3 MILLUNITS in Sodium Chloride 0.9% 100 ML IV SCH ×2 (08:25→08:26)
[2022-10-21] MEDS: Acetaminophen/oxyCODONE 325-5 MG Tab PO PRN ×2 (13:58→20:06)
[2022-10-21] MEDS: Ibuprofen 800 MG Tab PO PRN (22:01)
[2022-10-22] MEDS: Acetaminophen/oxyCODONE 325-5 MG Tab PO PRN ×6 (00:10→23:18)
[2022-10-22] MEDS: Ibuprofen 800 MG Tab PO PRN ×3 (06:38→21:44)
[2022-10-22] MEDS: Simethicone 80 MG Tab.Chew PO SCH ×4 (08:21→21:44)
[2022-10-22] MEDS: Docusate Sodium 100 MG Cap PO PRN ×2 (08:22→19:19)
[2022-10-22] MEDS: Prenatal Multivitamin with Calcium/Folic Acid/Iron Tab PO SCH (08:22)
[2022-10-22] MEDS: Ferrous Sulfate 325 MG Tab PO SCH (08:22)
[2022-10-22] MEDS ORDERED: Venlafaxine 37.5 MG Cap.ER PO SCH (12:00)
[2022-10-23] MEDS: Ibuprofen 800 MG Tab PO PRN (05:43)
[2022-10-23] MEDS: Acetaminophen/oxyCODONE 325-5 MG Tab PO PRN ×2 (05:44→09:40)
[2022-10-23] MEDS: Simethicone 80 MG Tab.Chew PO SCH (08:13)
[2022-10-23] MEDS: Docusate Sodium 100 MG Cap PO PRN (08:14)
[2022-10-23] MEDS: Ferrous Sulfate 325 MG Tab PO SCH (08:14)
[2022-10-23] MEDS: Prenatal Multivitamin with Calcium/Folic Acid/Iron Tab PO SCH (08:14)
[2022-10-23] MEDS ORDERED: Acetaminophen/oxyCODONE 325-5 MG Tab ONE (10:27)
[2022-10-23] MEDS ORDERED: Acetaminophen/oxyCODONE 325-5 MG Tab PO ONE (11:34)
[2022-10-23] MEDS ORDERED: Venlafaxine 37.5 MG Cap.ER PO SCH (12:00)
== END 2022-10-23 11:35 | disposition home or self-care (01) | DRG 787 ==
LOC: DL.OBCHECK 00:03 → DL.OB 07:01 → OBSVTOIN 19:22
PROVIDERS: ADMIT Family Medicine; ATTEND Family Medicine
PROC: 10D00Z1 Extraction of Products of Conception, Low, Open Approach (ICD-10-PCS; principal; 2022-10-20)
PROC: 3E0P7VZ Introduction of Hormone into Female Reproductive, Via Natural or Artificial Opening (ICD-10-PCS; 2022-10-20)
DX: O99.824 Streptococcus B carrier state complicating childbirth (principal); D62 Acute posthemorrhagic anemia; Z3A.39 39 weeks gestation of pregnancy; Z37.0 Single live birth; O99.02 Anemia complicating childbirth; D50.0 Iron deficiency anemia secondary to blood loss (chronic); O99.344 Other mental disorders complicating childbirth; O69.1XX0 Labor and delivery complicated by cord around neck, with compression, not applicable or unspecified; O76 Abnormality in fetal heart rate and rhythm complicating labor and delivery; F41.9 Anxiety disorder, unspecified; F32.A Depression, unspecified; O22.43 Hemorrhoids in pregnancy, third trimester; O99.334 Smoking (tobacco) complicating childbirth; F17.210 Nicotine dependence, cigarettes, uncomplicated; Z20.822 Contact with and (suspected) exposure to COVID-19
CPT/HCPCS: 01961; 36415; 59409; 85027; 86850; 86900; 86901; A9270-GY; J0330; J0690; J1885; J2300; J2540; J2590; J3010; J7120; U0002

== ENCOUNTER 2023-01-11 21:36 | Emergency (ER) | payer MEDICAID ==
[2023-01-11] MEDS ORDERED: Sodium Chloride 0.9% 10 ML Syringe FLUSH PRN (22:03)
[2023-01-11 22:35] LABS: ACETAMINOPHEN 37 ug/mL (10-30 (Therapeutic)); ANION GAP 14.6 mEq/L (7-13); CHLORIDE,CL 104 mmol/L (98-107); SODIUM,NA 140 mmol/L (136-145)
[2023-01-11 22:36] LABS: ESTIMATED GFR 105 mL/min (>=60)
== END 2023-01-11 23:30 | disposition home or self-care (01) ==
LOC: DL.ED 21:36
DX: U07.1 COVID-19 (principal); F15.10 Other stimulant abuse, uncomplicated
CPT/HCPCS: 36415; 80053; 80143; 80179; 80307; 83605; 83735; 84703; 85025; 85379; 86140; 87040; 93005; 93010; 99283; 99284; J3490